=== PATIENT | male | born 1975 | race Caucasian/White ===

== ENCOUNTER 2017-07-24 11:41 | Emergency (ER) | payer OTHER ==
[2017-07-24 11:47] VITALS: BMI 23.5
[2017-07-24 11:49] VITALS: TEMP 98.3
--- NOTE | 2017-07-24 12:30 | ED PDOC ---
Lower Extremity Pain/Injury Time Seen by Provider: 07/24/17 12:03 Chief Complaint (Nursing): Lower Extremity Problem/Injury Chief Complaint (Provider): Left Calf Pain History Per: Patient History/Exam Limitations: no limitations Onset/Duration Of Symptoms: Days (x1) Current Symptoms Are (Timing): Still Present Severity: None Additional Complaint(s): 42 year old male presents to the emergency department complaining of left calf pain x1 day. The patient states that yesterday he was attempting to hold an elevator door and when he turned he immediately felt pain in his left calf. He reports that the pain persisted and this prompted to visit [facility] who advised him to come into the emergency department to have an ultrasound performed to rule out deep vein thrombosis. Patient states that he has no pain when at rest but he does have pain when he attempts to walk. Denies shortness of breath, chest pain, history of DVT, history of PE, recent surgery, prolonged immobilization. - Ankle/Foot Description Of Injury: Other - Risk Factors DVT Risk Factors: Pos: None Neg: Decreased Mobility, Extremity Immobiliztion, Major Surgery, History Of DVT, History Of PE Past Medical History Reviewed: Historical Data, Nursing Documentation, Vital Signs Vital Signs: Last Vital Signs Temp 98.3 F 07/24/17 11:47 Pulse 94 H 07/24/17 11:47 Resp 16 07/24/17 11:47 BP 139/84 07/24/17 11:47 Pulse Ox 98 07/24/17 11:47 - Medical History PMH: Asthma (4-5 yrs ago) - Surgical History Surgical History: No Surg Hx - Family History Family History: States: Unknown Family Hx - Living Arrangements Living Arrangements: With Family - Social History Current smoker - smoking cessation education provided: No Ex-Smoker (has not smoked in the last 12 months): No Alcohol: None Drugs: Denies - Allergies Allergies/Adverse Reactions: Allergies Allergy/AdvReac Type Severity Reaction Status Date / Time No Known Allergies Allergy Verified 07/24/17 11:54 Review of Systems ROS Statement: Except As Marked, All Systems Reviewed And Found Negative Cardiovascular: Negative for: Chest Pain Respiratory: Negative for: Shortness of Breath, Wheezing Musculoskeletal: Positive for: Other (left calf pain) Physical Exam - Reviewed Nursing Documentation Reviewed: Yes Vital Signs Reviewed: Yes - Physical Exam Appears: Positive for: No Acute Distress Respiratory: Negative for: Respiratory Distress Extremity: Positive for: Normal ROM (Full ROM actively of left hip, left knee and left ankle.), Calf Tenderness (mild), Capillary Refill (less than 2 seconds) , Other (DP pulses 2+ b/l; (-) Homans sign.). Negative for: Swelling (no calf swelling) Neurologic/Psych: Positive for: Alert, Oriented - ECG O2 Sat by Pulse Oximetry: 98 (RA) Pulse Ox Interpretation: Normal Medical Decision Making Medical Decision Makin Initial Impression 42 year old male presenting with left calf pain Initial Plan: * RAD Tibia Fibula * Left US Duplex Lower extrm Tib/Fib x-ray: no fx Duplex LLE vein: negative for DVT Advised to f/u with ortho for further evaluation. Pt. with crutches from urgent care. Also told to take Naproxen 440mg q12h or Ibuprofen 600mg q6h PRN pain with food. Documented by Lacey Patiño acting as a scribe for Landon Gabriel PA-C. All medical record entries made by the Scribe were at my direction and personally dictated by me. I have reviewed the chart and agree that the record accurately reflects my personal performance of the history, physical exam, medical decision making, and the department course for this patient. I have also personally directed, reviewed, and agree with the discharge instructions and disposition. Disposition - Clinical Impression Clinical Impression: Strain of calf muscle - Patient ED Disposition Is Patient to be Admitted: No - Disposition Referrals: [facility] [Outside] Luis Rasheed MD [Staff Provider] - Disposition: Routine/Home Disposition Time: 14:15 Condition: STABLE Additional Instructions: Follow up with orthopedist for further evaluation. Return to ED immediately if symptoms worsen. Instructions: Muscle Strain (DC), How to Use Crutches, Lower Extremity Muscle Strain (DC), Going Up and Down Curbs or Stairs With a Walker or Crutches Forms: [employer] (E[place]ian) Print Language: SETSWANA
[2017-07-24 15:02] VITALS: BP 128/83; PULSE 71; RESP 19
[2017-07-24 21:46] VITALS: O2SAT 98
--- NOTE | 2017-07-25 07:46 | RAD ---
HISTORY: trauma COMPARISON: No prior FINDINGS: BONES: Normal. No fracture. JOINTS: Normal. No osteoarthritis. SOFT TISSUE: Normal. OTHER FINDINGS: None . IMPRESSION: Normal Bone Xray.
--- NOTE | 2017-07-26 10:39 | US ---
HISTORY: trauma . PRIORS: None. FINDINGS: 2-D, color and duplex Doppler analysis of the lower extremity venous circulation using routine protocol from the femoral veins through the popliteal veins. Venous compressibility: Normal. Flow and augmentation patterns: Normal. Visualized veins upper third of calf: Normal. Redd cyst: None. IMPRESSION: No sonographic or Doppler evidence for DVT in left lower extremity.
== END 2017-07-24 15:03 | disposition home or self-care (01) ==
LOC: H.ER 11:41
DX: S86.812A Strain of other muscle(s) and tendon(s) at lower leg level, left leg, initial encounter (principal); X50.9XXA Other and unspecified overexertion or strenuous movements or postures, initial encounter; Y92.89 Other specified places as the place of occurrence of the external cause; Z86.718 Personal history of other venous thrombosis and embolism